=== PATIENT | female | born 1990 ===

== ENCOUNTER 2021-02-26 18:47 | Emergency (ER) | payer OTHER ==
[~2021-02-26] VITALS: Ht 160 cm; Wt 90.4 kg
[2021-02-26] MEDS ORDERED: THERAFLU FLU &1 EAC1 PO (19:18)
[2021-02-26] MEDS ORDERED: AZITHROMYCIN250 MG PO (19:18)
[2021-02-26] MEDS ORDERED: IBUPROFEN IB200 MG PO (19:18)
== END 2021-02-26 19:27 | disposition home or self-care (01) ==
LOC: FSED 19:05
DX: R05.9 Cough, unspecified (principal); J06.9 Acute upper respiratory infection, unspecified; R09.89 Other specified symptoms and signs involving the circulatory and respiratory systems; Z71.89 Other specified counseling
CPT/HCPCS: 99282